=== PATIENT | male | born 1980 | race Caucasian/White ===

== ENCOUNTER 2018-10-21 11:28 | Day surgery (SDC) | payer OTHER ==
[2018-10-21] MEDS ORDERED: PROPOFOL 40 ML (12:53)
[2018-10-21] MEDS ORDERED: LIDOCAINE 2% (SDV) 5 ML INJ (12:53)
[2018-10-21] MEDS ORDERED: ACETAMINOPHEN 500 MG TAB PO (12:55)
[2018-10-21] MEDS ORDERED: ONDANSETRON 4 MG INJ IV (13:00)
== END 2018-10-21 16:12 | disposition home or self-care (01) ==
LOC: GIL 11:28
DX: K29.50 Unspecified chronic gastritis without bleeding (principal)
CPT/HCPCS: 43239; 88305; 88312